=== PATIENT | male | born 1990 | race African-American/Black ===

== ENCOUNTER 2024-03-17 09:02 | Emergency (ER) | payer OTHER ==
[~2024-03-17] VITALS: Ht 175.3 cm; Wt 77.0 kg
[~2024-03-17 09:02] MED LIST: DIPH50CA37 PO; FLUC150T61 PO; KETO15CR2 TP
[2024-03-17 09:06] VITALS: BP 127/74; PULSE 74; RESP 16; TEMP 98.2
[2024-03-17] MEDS: CLOTRIMAZOLE 1% 15 GM CREAM TP ONE (10:07)
== END 2024-03-17 10:09 | disposition home or self-care (01) ==
LOC: EMS 09:02
DX: B35.9 Dermatophytosis, unspecified (principal)
CPT/HCPCS: 99282; Z7502; Z7610